=== PATIENT | female | born 1935 ===

== ENCOUNTER 2017-01-26 13:55 | Emergency (ER) | payer MEDICAID, MEDICARE ==
[2017-01-26 14:02] VITALS: BP 135/52; PULSE 73; RESP 16; TEMP 97; O2SAT 99
--- NOTE | 2017-01-26 14:58 | ED PDOC ---
HPI: General Adult Time Seen by Provider: 01/26/17 14:09 Chief Complaint (Nursing): Med Refill Chief Complaint (Provider): Med refill History Per: Patient, Family History/Exam Limitations: no limitations Onset/Duration Of Symptoms: Persistent Have you had recent travel within the past 21 days to any of the following countries: [place], [place], [place] or [place]?: No Current Symptoms Are (Timing): Still Present Additional Complaint(s): The patient is a 81yo female, past medical history of hypertension, hypercholesterolemia, dementia, depression, presents to the ED requesting refills for her Klonopin. Patient states her PCP Dr. Braden referred her to a psychiatrist however she was unable to get an appointment until June. She states her current psychiatrist Dr. Mejía is on vacation so she has been unable to get her medications. She denies any suicidal ideation, homicidal ideation. She offers no medical complaints. Past Medical History Reviewed: Historical Data, Nursing Documentation, Vital Signs Vital Signs: Last Vital Signs Temp 97 F L 01/26/17 13:59 Pulse 73 01/26/17 13:59 Resp 16 01/26/17 13:59 BP 135/52 L 01/26/17 13:59 Pulse Ox 99 01/26/17 13:59 - Medical History PMH: Dementia, Depression, HTN, Hypercholesterolemia - Surgical History Surgical History: Cholecystectomy - Family History Family History: States: Unknown Family Hx - Living Arrangements Living Arrangements: With Family - Home Medications Home Medications: Ambulatory Orders Medication Instructions Recorded Amlodipine Besylate [Amlodipine 10 mg PO DAILY 02/16/15 Besylate] Clonazepam [Klonopin Wafers] 0.25 mg PO HS 02/16/15 Donepezil Hydrochloride [Aricept] 5 mg PO DAILY 02/16/15 Escitalopram [Lexapro] 10 mg PO DAILY 02/16/15 Memantine HCl [Namenda Xr] 21 mg PO DAILY 02/16/15 Tramadol Hydrochloride [Tramadol 50 mg PO Q12 PRN 02/16/15 HCl] Valsartan/Hydrochlorothiazide 1 tab PO DAILY 02/16/15 [Valsartan-Hydrochlorothiazide 12.5 mg-160 mg] Clonazepam [Klonopin] 0.5 mg PO BID PRN #6 tablet 01/26/17 - Allergies Allergies/Adverse Reactions: Allergies Allergy/AdvReac Type Severity Reaction Status Date / Time seasonal Allergy SHORTNESS Uncoded 02/16/15 16:58 OF BREATH Review of Systems ROS Statement: Except As Marked, All Systems Reviewed And Found Negative Psych: Negative for: Suicidal ideation (homicidal ideation ) Physical Exam - Reviewed Nursing Documentation Reviewed: Yes Vital Signs Reviewed: Yes - Physical Exam Appears: Positive for: Well, Non-toxic, No Acute Distress Respiratory: Negative for: Respiratory Distress Neurologic/Psych: Positive for: Alert, Oriented, Mood/Affect (normal). Negative for: Motor/Sensory Deficits - ECG O2 Sat by Pulse Oximetry: 99 (RA) Pulse Ox Interpretation: Normal Medical Decision Making Medical Decision Making: Time: 1415 Impression: Medication refill Plan: -- Patient informed that klonopin is a controlled substance and that she is not able to get a month long prescription in the ED. Informed patient to follow up with a psychiatrist for continued care. She expresses understanding and is agreeable. Stable for discharge home. Scribe Attestation: Documented by Carolina Clark acting as a scribe for SAEID Del Cid Provider Attestation: All medical record entries made by the Scribe were at my direction and personally dictated by me. I have reviewed the chart and agree that the record accurately reflects my personal performance of the history, physical exam, medical decision making, and the department course for this patient. I have also personally directed, reviewed, and agree with the discharge instructions and disposition. Disposition - Clinical Impression Clinical Impression: Medication refill Counseled Patient/Family Regarding: Need For Followup, Rx Given - Disposition Disposition: Routine/Home Disposition Time: 14:30 Condition: STABLE Prescriptions: Clonazepam [Klonopin] 0.5 mg PO BID PRN #6 tablet PRN Reason: Anxiety Instructions: Clonazepam (By mouth) Print Language: OCCITAN
== END 2017-01-26 15:09 | disposition home or self-care (01) ==
LOC: H.ER 13:55
DX: F03.90 Unspecified dementia, unspecified severity, without behavioral disturbance, psychotic disturbance, mood disturbance, and anxiety (principal); Z86.59 Personal history of other mental and behavioral disorders; I10 Essential (primary) hypertension; Z76.0 Encounter for issue of repeat prescription

== ENCOUNTER 2017-01-26 15:22 | Emergency (ER) | payer MEDICARE ==
[2017-01-26 15:41] VITALS: BP 136/57; PULSE 68; RESP 16; TEMP 98.2; O2SAT 98
--- NOTE | 2017-01-26 17:29 | ED PDOC ---
HPI: Psych/Substance Abuse Time Seen by Provider: 01/26/17 15:24 Chief Complaint (Nursing): Psychiatric Evaluation Past Medical History Vital Signs: Last Vital Signs Temp 98.2 F 01/26/17 15:37 Pulse 68 01/26/17 15:37 Resp 16 01/26/17 15:37 BP 136/57 L 01/26/17 15:37 Pulse Ox 98 01/26/17 15:37 - Medical History PMH: Dementia, Depression, HTN, Hypercholesterolemia - Surgical History Surgical History: Cholecystectomy - Family History Family History: States: Unknown Family Hx - Home Medications Home Medications: Ambulatory Orders Medication Instructions Recorded Amlodipine Besylate [Amlodipine 10 mg PO DAILY 02/16/15 Besylate] Clonazepam [Klonopin Wafers] 0.25 mg PO HS 02/16/15 Donepezil Hydrochloride [Aricept] 5 mg PO DAILY 02/16/15 Escitalopram [Lexapro] 10 mg PO DAILY 02/16/15 Memantine HCl [Namenda Xr] 21 mg PO DAILY 02/16/15 Tramadol Hydrochloride [Tramadol 50 mg PO Q12 PRN 02/16/15 HCl] Valsartan/Hydrochlorothiazide 1 tab PO DAILY 02/16/15 [Valsartan-Hydrochlorothiazide 12.5 mg-160 mg] Clonazepam [Klonopin] 0.5 mg PO BID PRN #6 tablet 01/26/17 - Allergies Allergies/Adverse Reactions: Allergies Allergy/AdvReac Type Severity Reaction Status Date / Time seasonal Allergy SHORTNESS Uncoded 02/16/15 16:58 OF BREATH - ECG O2 Sat by Pulse Oximetry: 98 Disposition - Clinical Impression Clinical Impression: Medication refill - Patient ED Disposition Is Patient to be Admitted: No - Disposition Disposition: Routine/Home Disposition Time: 17:27 Condition: GOOD Instructions: Medicine Refill (ED) Print Language: [place] ISLAND[place]
--- NOTE | 2017-01-26 17:35 | ED PDOC ---
HPI: Psych/Substance Abuse Time Seen by Provider: 01/26/17 15:24 Chief Complaint (Nursing): Psychiatric Evaluation Chief Complaint (Provider): Crisis evaluation History Per: Patient History/Exam Limitations: no limitations Onset/Duration Of Symptoms: Days Current Symptoms Are (Timing): Still Present Suicide/Self Injury Attempted (Context): None Additional Complaint(s): The patient was seen earlier in the ED and informed that she would not be able to get a prescription for her Klonopin. Patient states she returned to the ED requesting a crisis evaluation and is wishing to be seen by a psychiatrist. She offers no additional medical complaints. Patient is requesting admission to the psych floor. Past Medical History Reviewed: Historical Data, Nursing Documentation, Vital Signs Vital Signs: Last Vital Signs Temp 98.2 F 01/26/17 15:37 Pulse 68 01/26/17 15:37 Resp 16 01/26/17 15:37 BP 136/57 L 01/26/17 15:37 Pulse Ox 98 01/26/17 17:29 - Medical History PMH: Dementia, Depression, HTN, Hypercholesterolemia - Surgical History Surgical History: Cholecystectomy - Family History Family History: States: Unknown Family Hx - Home Medications Home Medications: Ambulatory Orders Medication Instructions Recorded Amlodipine Besylate [Amlodipine 10 mg PO DAILY 02/16/15 Besylate] Clonazepam [Klonopin Wafers] 0.25 mg PO HS 02/16/15 Donepezil Hydrochloride [Aricept] 5 mg PO DAILY 02/16/15 Escitalopram [Lexapro] 10 mg PO DAILY 02/16/15 Memantine HCl [Namenda Xr] 21 mg PO DAILY 02/16/15 Tramadol Hydrochloride [Tramadol 50 mg PO Q12 PRN 02/16/15 HCl] Valsartan/Hydrochlorothiazide 1 tab PO DAILY 02/16/15 [Valsartan-Hydrochlorothiazide 12.5 mg-160 mg] Clonazepam [Klonopin] 0.5 mg PO BID PRN #6 tablet 01/26/17 - Allergies Allergies/Adverse Reactions: Allergies Allergy/AdvReac Type Severity Reaction Status Date / Time seasonal Allergy SHORTNESS Uncoded 02/16/15 16:58 OF BREATH Review of Systems ROS Statement: Except As Marked, All Systems Reviewed And Found Negative Psych: Positive for: Anxiety, Depression Physical Exam - Reviewed Nursing Documentation Reviewed: Yes Vital Signs Reviewed: Yes - Physical Exam Appears: Positive for: Well, Non-toxic, No Acute Distress Head Exam: Positive for: ATRAUMATIC, NORMAL INSPECTION, NORMOCEPHALIC Skin: Positive for: Normal Color Eye Exam: Positive for: Normal appearance Neck: Positive for: Normal Cardiovascular/Chest: Positive for: Regular Rate, Rhythm Respiratory: Positive for: Normal Breath Sounds. Negative for: Respiratory Distress Neurologic/Psych: Positive for: Alert, Oriented - ECG O2 Sat by Pulse Oximetry: 98 (RA) Pulse Ox Interpretation: Normal Medical Decision Making Medical Decision Making: Time: 1548 Impression: Crisis evaluation Plan: -- Crisis evaluation Reassess Time: 165 Patient seen and evaluated by crisis team. Patient does not meet criteria for admission. Patient informed to follow up with PCP to get referral for another psychiatrist. Stable for d/c home. Scribe Attestation: Documented by Carolina Clark acting as a scribe for SAEID Del Cid Provider Attestation: All medical record entries made by the Scribe were at my direction and personally dictated by me. I have reviewed the chart and agree that the record accurately reflects my personal performance of the history, physical exam, medical decision making, and the department course for this patient. I have also personally directed, reviewed, and agree with the discharge instructions and disposition. Disposition - Clinical Impression Clinical Impression: Medication refill Counseled Patient/Family Regarding: Need For Followup - Disposition Disposition: Routine/Home Disposition Time: 17:27 Condition: STABLE Instructions: Medicine Refill (ED) Print Language: GUAMAN[place]
== END 2017-01-26 17:43 | disposition home or self-care (01) ==
LOC: H.ER 15:22
DX: Z86.59 Personal history of other mental and behavioral disorders (principal); Z00.8 Encounter for other general examination